=== PATIENT | female | born 1950 | race African-American/Black ===

== ENCOUNTER 2018-08-17 09:17 | Inpatient (IN) | payer OTHER, MEDICARE ==
--- NOTE | 2018-08-17 12:42 | PDOC.FPRHP ---
- History of Present Illness Chief Complaint: Left sided weakness History of Present Illness: Ms Marte is a 67yo female with pmh of HTN presenting with Left sided weakness that started at 3pm yesterday 08/16. 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 She reports always having difficulty walking but it is usually limited by pain not weakness. She later noticed left arm weakness, not being able to goldsmith apprentice things as tightly. Denies any facial droop, speech changes, confusion or numbness/ tingling. She has not prior hx of stroke or TIA. Says she has been to see a civil division deputy sheriff before but reports no cardiac hx. Symptoms are still present, but have not worsened. ED Course: [place]: Amlodipine 10mg [facility]: ASA 325mg - Allergies/Adverse Reactions Allergies Allergy/AdvReac Type Severity Reaction Status Date / Time No Known Allergies Allergy Verified 08/17/18 12:59 - Home Medications Medication Instructions Recorded Confirmed Type Amlodipine [Norvasc] 5 mg PO HS 08/17/18 08/17/18 History Aspirin [Aspirin Chewable] 81 mg PO DAILY 08/17/18 08/17/18 History Cetirizine HCl [Zyrtec] 10 mg PO DAILY 08/17/18 08/17/18 History Cholecalciferol (Vitamin D3) 1 tab PO DAILY 08/17/18 08/17/18 History [Vitamin D] Furosemide 40 mg PO DAILY 08/17/18 08/17/18 History Losartan Potassium 100 mg PO DAILY 08/17/18 08/17/18 History - History PMHx: HTN PSHx: Hysterectomy, Tubal ligation FHx: Strong family hx of CAD & DMII. Dad & uncle- [place]. Mother- Lung cancer Social: Denies tobacco or drug use. Reports social alcohol use - Vital signs BP: 150/103 HR: 74 RR: 16 Tmax: 98.4 Pox: 98% on RA Wt: 113kg - Physical Exam Constitutional: NAD, awake, alert and oriented, well developed HEENT: normocephalic and atraumatic, PERRLA, grossly normal hearing, MMM, oropharynx clear Neck: supple, trachea midline Heart: RRR, no murmurs/rubs/gallops Lungs: CTAB -Lungs: limited due to body habitus Abdomen: soft, non-tender, bowel sounds present Musculoskeletal: normal structure, normal tone Neurological: other (CN 2-12 intact with exception of mild left sided mouth droop. Normal heel to page, clonus L>R. DTR 2+ brachioradialis and patellar The patient is alert, attentive, and oriented. Speech is clear and fluent with good repetition, comprehension, and naming. Sensation to light touch intact arms and legs bilaterally Abnormal rapid alternating movements of left hand 5/5 Rt shoulder abductors, elbow flexors/extensors, wrist goldsmith apprentice. 4/5 in Left 5/5 in Rt hip flexors, ankle dorsiflexors and planter flexors bilaterally) FMR H&P: Results - Radiology Interpretation CT scan - head Status: report reviewed by me Additional comment: CT/ CTA of head and neck- no acute abnormalities no evidence of carotid or intracranial vascular occlusion FMR H&P: A/P - Problem List (1) TIA (transient ischemic attack) Current Visit: Yes Status: Acute Code(s): G45.9 - TRANSIENT CEREBRAL ISCHEMIC ATTACK, UNSPECIFIED (2) HTN (hypertension) Current Visit: Yes Status: Acute Code(s): I10 - ESSENTIAL (PRIMARY) HYPERTENSION - Plan CVA vs TIA - CT/CTA head and neck- no acute abnormalities. no evidence of carotid or intracranial vascular occlusion - Allow for permissive HTN for 24hr - Admit to Stroke, neurochecks q4h - PT/OT - Echo ordered - MRI ordered - Ordered FLP, Mg, TSH, Ph - Pt currently on daily ASA, will add Atorvastatin 40mg - Consulted Neuro HTN - Allow for permissive HTN for 24hrs which is today at 1500 - After 1500 restart home Amlodipine, losartan and Lasix - Request records from civil division deputy sheriff Code Status: FULL DVT ppx: Lovenox FMR H&P: Upper Level - Pertinent history This is a 67 y/o F with PMHx of HTN who presents due to L sided weakness. 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 She reports that it was unusual, but she continued her bus route and later noticed that she was unable to goldsmith apprentice as well in her left hand and her left arm felt weak. She denies any numbness, vision changes, facial changes, speech changes during this time. She denies any falls, syncope, trauma, or past h/o CVA, TIA. - Pertinent findings BP 124/92, HR 72, RR 18, Temp 98.3, O2 sat 100% on RA PE: Gen - alert, oriented, NAD HEENT: PERRL, EOMI, MMM CV: RRR, no murmurs, gallops, rubs Resp: CTAB, no wheezes, rales, rhonchi Neuro: CN II-XII intact with very minimal lip droop on L side, sensation grossly intact bilaterally, Cerebellum intact with [id number] and no dysdiadochokinesia, however decreased coordination with left side. Bilateral clonus. 4/5 strength on LUE, 5/5 strength on LLE, RLE, and RUE. AOx3. - Plan Date/Time: 08/17/18 1242 I, Mya Motley MD, PGY-2, have evaluated this patient and agree with findings/ plan as outlined by sports intern resident. Pertinent changes/additions are listed here. 67 y/o AAF with PMHx of HTN presents with L sided weakness 1. CVA vs TIA - pt with residual LUE weakness, minimal L facial droop, and bilateral clonus. Last seen normal at 3:10 pm on 08/16. No prior h/o CVA. CT and CTA head/neck were WNL except some chronic white matter ischemic changes. Will consult neuro for new CVA. Will check MRI brain, echo. Neuro checks q4h. PT /OT/Speech therapy eval. Will check FLP, TSH, mag, phos. Will start pt on atorvastatin 40mg and aspirin. 2. HTN - pt 23 hours after stoke, so will allow permissive HTN until 24 hours out, but then will restart home BP meds. VTE ppx: lovenox Diet: HH Code status: full Attending Addendum - Attending Addendum Date/Time: 08/17/181999 I personally evaluated the patient and discussed the management with Dr. Ross I agree with the History, Examination, Assessment and Plan documented above with any addition or exceptions noted below- 67 yo female with h/o HTN and heart failure unknown type who presented c/o left sided weakness that began yesterday. States that she noticed difficulty with walking yesterday - was dragging her left leg. Later that day she noticed weakness in her arm. Never had similar symptoms. Denies any STAPLES, difficulty with speech or swallowing. Reports that BP at hoem typically is in 120/80s. PMH/PSH/Meds/All reviewed and agree with resident's documentation. Afebrile VSS. Exam repeated by me and agree with resident's findings. Labs: WBC=8.0, H/H=13.1/42, Jlg=844, Oa=818, K= 3.8, Sy=494, CO2=27, BUN/Cr=8/0.75, Vzej=821, AST/ALT=15/13, TSH=1.1277, CT brain- chronic age related changes; no acute pathology, CT angio head-negative. A/P: 1) Left sided weakness- probable CVA- will obtain MRI,echo. Consult PT/OT. Consult neurology. Rehab screen. Start statin. 2) HTN- almost 24 hours post start of symptoms- resume home meds after 24 hours for BP control. 3) H/o heart failure- unknown treater- had workup 2 years ago with echo and stress test per patient; only on lasix, suspect HF with preserved EF- will obtain echo.
[2018-08-17 12:56] VITALS: BMI 46.5
[2018-08-17] MEDS ORDERED: Ondansetron ODT 4 MG TAB PO PRN (13:18)
[2018-08-17] MEDS ORDERED: Labetalol HCl 100 MG/20 ML VIAL SLOW IVP PRN (13:18)
[2018-08-17] MEDS ORDERED: Acetaminophen 325 MG TAB PO PRN (13:43)
[2018-08-17] MEDS ORDERED: Prevnar 13-Val Conj/PF 0.5 ML SYRINGE IM ONE (13:45)
[2018-08-17 16:21] LABS: Magnesium 2.2 mg/dL (1.6-2.6); Phosphorus 2.7 mg/dL (2.3-4.7)
--- NOTE | 2018-08-17 17:50 | MRI ---
NONCONTRAST ENHANCED MRI IMAGES BRAIN: 08/17/18 HISTORY: Left sided weakness. Multiplanar and multisequence noncontrast enhanced MR images of the brain obtained. Images demonstrate diffuse cortical atrophy and deep white matter ischemic changes. There is a small area of diffusion restriction seen in the right periventricular white matter. This area demonstrates decreased signal also on the ADC maps. This is compatible with a small linear area of acute stroke. T he rest of the brain demonstrates no evidence of acute intracranial pathology. Normal flow voids seen in the major intracranial vessels. No evidence of intracranial hemorrhage is seen. Old area of stroke seen in the left central gael. IMPRESSION: Small linear area of acute stroke in the right periventricular white matter. POS: SALVATORE
[2018-08-17] MEDS: Amlodipine 5 MG TAB PO SCH (20:46)
[2018-08-17] MEDS: Atorvastatin Calcium 40 MG TAB PO SCH (20:47)
--- NOTE | 2018-08-17 22:17 | CON ---
DATE OF CONSULTATION: 08/17/2018 IMPRESSION: 1. Lacunar infarction on the right resulting in left-sided weakness. 2. Hypertension. 3. Aspirin failure. PLAN: 1. Add Plavix. 2. Add statin. 3. Outpatient physical therapy. 4. Exercise program. Ms. Marte is a 67-year-old black female with a known history of hypertension. She presented with we akness on the left side which began yesterday. There was no associated slurred speech or difficulty swallowing. Initial CT scan was unremarkable other than moderately extensive small vessel ischemic c hanges. Her CTA did not show any stenosis of extracranial or intracranial vessels. Her MRI of the b rain shows a subtle area of new ischemia in the right periventricular region. She was not taking a s tatin prior to admission. PAST MEDICAL HISTORY: Hypertension. ALLERGIES: None. SOCIAL HISTORY: No tobacco or alcohol use. FAMILY HISTORY: Noncontributory. REVIEW OF SYSTEMS: No complaint of headache, nausea, vomiting, vertigo, chest pain, shortness of trav ath. PHYSICAL EXAMINATION: GENERAL: She is moderately overweight middle-aged woman in no acute distress. VITAL SIGNS: Blood pressure 124/92, pulse 72, respirations 18, temperature 98.3. HEENT: Within normal limits. NECK: Supple. EXTREMITIES: No cyanosis. NEUROLOGIC: She is alert and appropriate. Her speech is fluent and clear. Cranial nerve exam showe d a subtle droop on the left. Motor exam showed a partial antigravity strength in the left arm and a bit stronger in the left leg. She can walk with a limp. Sensation is intact to touch. No abnormal movements were seen. Imaging was reviewed. SUMMARY: This is a 67-year-old woman with known history of hypertension with fairly extensive silent ischemic injury. She presents with left-sided weakness and acute lacunar infarction. Despite aspir in, would proceed with the changes as noted and outpatient therapy.
[2018-08-18 04:46] LABS: #Eosinphils 0.2 thou/uL (0.0-0.7); #Lymphocytes 1.5 thou/uL (1.20-3.40); #Monocytes 0.7 thou/uL (0.11-0.59); #Neutrophils 4.8 thou/uL (1.40-6.50); %Basophils 0.4 % (0.0-1.0); %Eosinophils 2.8 % (0.0-10.0); %Monocytes 9.1 % (0.0-10.0); %Neutrophils 66.7 % (42.0-75.0); Mean Corpuscular HGB CONC 32.5 g/dL (32.0-36.0); Mean Corpuscular Hemoglobin 26.7 pg (27.0-31.0); Mean Corpuscular Volume 82.1 fL (78.0-98.0); Mean Platelet Volume 8.8 fL (7.4-10.4); Platelet Count 190 thou/uL (130-400); RBC Distribution Width 13.2 % (11.5-14.5); Red Blood Cell (RBC) Count 4.51 mill/uL (4.20-5.40); White Blood Cell (WBC) Count 7.3 thou/uL (4.8-10.8)
[2018-08-18 05:13] LABS: Anion Gap 11 mmol/L (10-20); BUN (Urea Nitrogen) 8 mg/dL (9.8-20.1); Calc. Creatinine Clearance 148 mL/min (70-130); Calcium 8.8 mg/dL (7.8-10.44); Carbon Dioxide 23 mmol/L (23-31); Cardiac Risk 2.8 (Less than 4.5); Chloride 109 mmol/L (98-107); Cholesterol 178 mg/dl (< 200 Desired); Estimated GFR-MDRD Greater than 90; Glucose 103 mg/dL (80-115); HDL Cholesterol 64 mg/dL (>60 Neg Risk); LDL Cholesterol, Calculated 103 mg/dL; Potassium 3.5 mmol/L (3.5-5.1); Sodium 139 mmol/L (136-145); Triglycerides 54 mg/dL (Less than 150)
--- NOTE | 2018-08-18 06:50 | PDOC.FM ---
- Subjective Subjective: Pt reports her left arm feels heavier today and weaker. Understands she has had a stroke. Denies new weakness in other extremities. No questions. - Objective MAR Reviewed: Yes Vital Signs & Weight: Vital Signs (12 hours) Temp Pulse Resp BP BP Pulse Ox 08/18/18 04:00 97.8 F 67 19 113/79 93 L 08/18/18 00:00 98.1 F 62 19 107/83 98 08/17/18 20:46 63 125/103 H 08/17/18 20:36 97 08/17/18 20:00 97.9 F 67 20 125/103 H 97 Weight Weight 115.439 kg I&O: 08/16/18 08/17/18 08/18/18 06:59 06:59 06:59 Intake Total 260 Balance 260 Result Diagrams: 08/18/18 03:38 08/18/18 03:38 <Yvette Ross - Last Filed: 08/18/18 08:56> - Objective Vital Signs & Weight: Vital Signs (12 hours) Temp Pulse Pulse Pulse Resp BP BP 08/18/18 09:05 63 62 122/83 141/99 H 08/18/18 08:57 08/18/18 08:00 98.6 F 61 20 08/18/18 04:00 97.8 F 67 19 08/18/18 00:00 98.1 F 62 19 BP Pulse Ox 08/18/18 09:05 08/18/18 08:57 96 08/18/18 08:00 129/96 H 96 08/18/18 04:00 113/79 93 L 08/18/18 00:00 107/83 98 Weight Weight 115.439 kg I&O: 08/17/18 08/18/18 08/19/18 06:59 06:59 06:59 Intake Total 260 Balance 260 Result Diagrams: 08/18/18 03:38 08/18/18 03:38 <Edgardo Osorio - Last Filed: 08/18/18 11:34> Phys Exam - Physical Examination Constitutional: NAD Neck: supple Respiratory: no wheezing, clear to auscultation bilateral limited by body habitus Cardiovascular: RRR, no significant murmur Gastrointestinal: soft, non-tender, positive bowel sounds Musculoskeletal: no edema 4/5 weakness and discoordination of arm and hand Psychiatric: normal affect, A&O x 3 <Yvette Ross - Last Filed: 08/18/18 08:56> Dx/Plan (1) CVA (cerebral vascular accident) Code(s): I63.9 - CEREBRAL INFARCTION, UNSPECIFIED Status: Acute (2) HTN (hypertension) Code(s): I10 - ESSENTIAL (PRIMARY) HYPERTENSION Status: Chronic - Plan Plan: CVA - Failed ASA - CT/CTA head and neck- no acute abnormalities. no evidence of carotid or intracranial vascular occlusion - MRI: Small linear area of acute stroke in the right periventricuular white matter - Neurochecks q4h - PT/OT, will need outpatient PT - Echo ordered - FLP nml - Continue ASA, Atorvastatin 40mg - Started Plavix - Consulted Neuro HTN - Continue Amlodipine, losartan and Lasix - Request records from screen tender helper Code Status: FULL DVT ppx: Lovenox <Yvette Ross - Last Filed: 08/18/18 08:56> Attending Addendum - Attending Addendum Date/Time: 08/18/18 1133 I personally evaluated the patient and discussed the management with Dr. Ross. I agree with the History, Examination, Assessment and Plan documented above with any addition or exceptions noted below. Patient here for acute stroke. She is now on ASA and Plavix. MRI performed. Neurology has seen patient and agrees with plan. Awaiting therapy service recommendations to decide on dispo planning. Patient desires to go home and if cleared by therapy for that she should be stable for dc home today. <Edgardo Osorio - Last Filed: 08/18/18 11:34>
[2018-08-18] MEDS: Loratadine 10 MG TAB PO SCH (08:56)
[2018-08-18] MEDS: Losartan 25 MG TAB PO SCH (08:56)
[2018-08-18] MEDS: Enoxaparin Sodium 40 MG/0.4 ML SYRINGE SC SCH (08:57)
[2018-08-18] MEDS: Furosemide 40 MG TAB PO SCH ×2 (08:57→09:01)
[2018-08-18] MEDS: Amlodipine 5 MG TAB PO SCH (21:02)
[2018-08-18] MEDS: Atorvastatin Calcium 40 MG TAB PO SCH (21:02)
--- NOTE | 2018-08-19 06:14 | PDOC.FM ---
- Subjective Subjective: Reports doing well with walker walking to bathroom. No decline or improvement in left sided weakness. Awaiting rehab placement. She reports hx of DESMOND, wear CPAP at night. - Objective MAR Reviewed: Yes Vital Signs & Weight: Vital Signs (12 hours) Temp Pulse Resp BP BP Pulse Ox 08/19/18 04:00 99.7 F H 62 16 124/74 94 L 08/19/18 00:00 98.8 F 72 22 H 141/89 H 93 L 08/18/18 21:02 68 133/85 94 L 08/18/18 20:00 98.3 F 68 16 133/85 94 L Weight Weight 115.439 kg I&O: 08/17/18 08/18/18 08/19/18 06:59 06:59 06:59 Intake Total 260 750 Balance 260 750 Result Diagrams: 08/18/18 03:38 08/18/18 03:38 Phys Exam - Physical Examination Constitutional: NAD Neck: supple Respiratory: no wheezing, clear to auscultation bilateral Cardiovascular: RRR, no significant murmur Gastrointestinal: soft, non-tender, positive bowel sounds Musculoskeletal: no edema, pulses present 3/5 left UE weakness, subtle left sided facial droop, unbalanced when stand Psychiatric: normal affect, A&O x 3 Dx/Plan (1) CVA (cerebral vascular accident) Code(s): I63.9 - CEREBRAL INFARCTION, UNSPECIFIED Status: Acute (2) HTN (hypertension) Code(s): I10 - ESSENTIAL (PRIMARY) HYPERTENSION Status: Chronic (3) Pulmonary HTN Code(s): I27.20 - PULMONARY HYPERTENSION, UNSPECIFIED Status: Acute (4) DESMOND (obstructive sleep apnea) Code(s): G47.33 - OBSTRUCTIVE SLEEP APNEA (ADULT) (PEDIATRIC) Status: Acute (5) (HFpEF) heart failure with preserved ejection fraction Code(s): I50.30 - UNSPECIFIED DIASTOLIC (CONGESTIVE) HEART FAILURE Status: Acute - Plan Plan: CVA - Failed ASA - CT/CTA head and neck- no acute abnormalities. no evidence of carotid or intracranial vascular occlusion - MRI: Small linear area of acute stroke in the right periventricuular white matter - Neurochecks q4h - PT/OT - Echo: EF 50-55% no thrombus - FLP nml - Continue ASA, Atorvastatin 40mg, Plavix - Consulted Neuro, apprec recs - PT recommends inpt rehab HTN - Continue Amlodipine, losartan and Lasix - Request records from timber buyer DESMOND - Will order CPAP HFpEF - documented on records obtained from timber buyer Pulmonary HTN - documented on records obtained from timber buyer. Will continue to look through records today. Code Status: FULL DVT ppx: Lovenox Dispo: pending inpt rehab placement
[2018-08-19] MEDS: Losartan 25 MG TAB PO SCH (08:39)
[2018-08-19] MEDS: Enoxaparin Sodium 40 MG/0.4 ML SYRINGE SC SCH (08:39)
[2018-08-19] MEDS: Loratadine 10 MG TAB PO SCH (08:43)
[2018-08-19] MEDS: Clopidogrel Bisulfate 75 MG TAB PO SCH (08:43)
[2018-08-19] MEDS: Furosemide 40 MG TAB PO SCH (08:43)
--- NOTE | 2018-08-19 11:35 | PDOC.EVN ---
Attending Addendum - Attending Addendum Date/Time: 08/19/18 0310 I personally evaluated the patient and discussed the management with Dr. Ross. I agree with the History, Examination, Assessment and Plan documented in her progress note with any addition or exceptions noted below. Patient doing well. BP and other comorbid conditions controlled. Awaiting placement at hopefully inpatient rehab as she is good candidate. Otherwise medically stable for discharge.
[2018-08-19] MEDS: Amlodipine 5 MG TAB PO SCH (22:03)
[2018-08-19] MEDS: Atorvastatin Calcium 40 MG TAB PO SCH (22:03)
--- NOTE | 2018-08-20 06:00 | PDOC.FM ---
- Subjective Subjective: Continues to report left sided weakness. Stable from yesterday. She is receiving PT. No questions at this time. - Objective MAR Reviewed: Yes Vital Signs & Weight: Vital Signs (12 hours) Temp Pulse Resp BP BP Pulse Ox 08/20/18 04:00 98.5 F 70 16 111/75 95 08/20/18 01:09 98.6 F 71 16 121/76 93 L 08/19/18 22:03 74 104/75 08/19/18 20:25 94 L 08/19/18 19:08 98.5 F 79 20 104/75 94 L Weight Weight 115.439 kg I&O: 08/18/18 08/19/18 08/20/18 06:59 06:59 06:59 Intake Total 260 870 960 Balance 260 870 960 Result Diagrams: 08/18/18 03:38 08/18/18 03:38 <Yvette Ross - Last Filed: 08/20/18 09:00> - Objective Vital Signs & Weight: Vital Signs (12 hours) Temp Pulse Resp BP Pulse Ox 08/20/18 07:53 99.3 F 65 20 123/87 96 08/20/18 04:00 98.5 F 70 16 111/75 95 08/20/18 01:09 98.6 F 71 16 121/76 93 L Weight Weight 115.439 kg I&O: 08/19/18 08/20/18 08/21/18 06:59 06:59 06:59 Intake Total 870 1200 Balance 870 1200 Result Diagrams: 08/18/18 03:38 08/18/18 03:38 <Edgardo Osorio - Last Filed: 08/20/18 10:53> Phys Exam - Physical Examination Constitutional: NAD Neck: supple Respiratory: no wheezing, clear to auscultation bilateral Cardiovascular: RRR, no significant murmur Gastrointestinal: soft, non-tender, positive bowel sounds RUE 3/5 weakness & LLE 4/5 weakness Psychiatric: normal affect, A&O x 3 <Yvette Ross - Last Filed: 08/20/18 09:00> Dx/Plan (1) CVA (cerebral vascular accident) Code(s): I63.9 - CEREBRAL INFARCTION, UNSPECIFIED Status: Acute (2) HTN (hypertension) Code(s): I10 - ESSENTIAL (PRIMARY) HYPERTENSION Status: Chronic (3) Pulmonary HTN Code(s): I27.20 - PULMONARY HYPERTENSION, UNSPECIFIED Status: Acute (4) DESMOND (obstructive sleep apnea) Code(s): G47.33 - OBSTRUCTIVE SLEEP APNEA (ADULT) (PEDIATRIC) Status: Acute (5) (HFpEF) heart failure with preserved ejection fraction Code(s): I50.30 - UNSPECIFIED DIASTOLIC (CONGESTIVE) HEART FAILURE Status: Acute - Plan Plan: CVA - Failed ASA - CT/CTA head and neck- no acute abnormalities. no evidence of carotid or intracranial vascular occlusion - MRI: Small linear area of acute stroke in the right periventricuular white matter - Neurochecks q4h - PT/OT - Echo: EF 50-55% no thrombus - FLP nml - Continue ASA, Atorvastatin 40mg, Plavix - Consulted Neuro, apprec recs - Pending inpt rehab placement HTN - Continue Amlodipine, losartan and Lasix DESMOND - CPAP at HS HFpEF - Does not appear to be fluid overloaded on exam - Continue lasix daily Pulmonary HTN, stable Code Status: FULL DVT ppx: Lovenox Dispo: pending inpt rehab placement <Yvette Ross - Last Filed: 08/20/18 09:00> Attending Addendum - Attending Addendum Date/Time: 08/20/18 1053 I personally evaluated the patient and discussed the management with Dr. Ross. I agree with the History, Examination, Assessment and Plan documented above with any addition or exceptions noted below. Patient stable. Doing well with PT. Awaiting approval for inpatient rehab. <Edgardo Osorio - Last Filed: 08/20/18 10:53>
[2018-08-20] MEDS: Enoxaparin Sodium 40 MG/0.4 ML SYRINGE SC SCH (10:58)
[2018-08-20] MEDS: Clopidogrel Bisulfate 75 MG TAB PO SCH (10:59)
[2018-08-20] MEDS: Furosemide 40 MG TAB PO SCH (11:01)
[2018-08-20] MEDS: Losartan 25 MG TAB PO SCH (11:01)
[2018-08-20] MEDS: Loratadine 10 MG TAB PO SCH (11:01)
[2018-08-20 11:54] VITALS: TEMP 98
[2018-08-20 12:29] VITALS: BP 143/99
--- NOTE | 2018-08-21 00:52 | DIS-2 ---
DATE OF ADMISSION: 08/17/2018 DATE OF DISCHARGE: 08/20/2018 RESIDENT: Yvette Ross M.D., PGY1 ADMITTING ATTENDING: Laura Dodson M.D. DISCHARGE ATTENDING: Edgardo Osorio M.D. CONSULTATIONS: Neurology. PROCEDURES: 1. Brain MRI, small linear area of acute stroke in the right periventricular white matter. 2. Echocardiogram: EF 50%-55%. Mild mitral and tricuspid regurgitation. PRIMARY DIAGNOSIS: Acute cerebrovascular accident. SECONDARY DIAGNOSES: 1. Hypertension. 2. Obstructive sleep apnea. 3. Heart failure with preserved ejection fraction. 4. Pulmonary hypertension. DISCHARGE MEDICATIONS: 1. Aspirin 81 mg daily. 2. Amlodipine 5 mg at bedtime. 3. Furosemide 40 mg daily. 4. Losartan 100 mg daily. 5. Zyrtec 10 mg daily. 6. Vitamin D3 one tab daily. 7. Atorvastatin 40 mg at bedtime. 8. Clopidogrel 75 mg daily. DISCONTINUED MEDICATIONS: None. HISTORY OF PRESENT ILLNESS AND HOSPITAL COURSE: Ms. Marte is a 67-year-old female with past medical history of hypertension who presented with left-sided weakness that started 3:00 p.m. the day prior. She was outside the window for TPA. She was transferred from [place] ED, where CT and CTA of head and neck were performed and showed no acute abnormalities. Brain MRI was notable for a small li near area of acute stroke in the right periventricular white matter. The patient had been on aspirin prior to stroke and therefore failed aspirin therapy. Plavix was added as well as atorvastatin 40 m g. Neurology was consulted. Echo was performed showing EF of 50%-55%, no thrombus. PT and OT evalu ated the patient and felt that inpatient rehab placement was best for recovery. The patient's chronic condition of hypertension was treated with her home medications. She was mirtha nued on CPAP at night for her obstructive sleep apnea. Records were obtained from her media production support manager t hat showed a history of heart failure with preserved ejection fraction, which she was continued on La six and a history of pulmonary hypertension, stable. DISPOSITION: Stable. DISCHARGE INSTRUCTIONS: 1. Location: Inpatient rehabilitation. 2. Diet: Heart healthy. 3. Activity: No restriction. 4. Followup: Follow up with PCP in 3-7 days.
== END 2018-08-20 17:25 | DRG 65 ==
LOC: ERS 09:17 → ERHOLD 10:08 → 2SE 11:56
PROVIDERS: ADMIT Student in an Organized Health Care Education/Training Program; ATTEND Student in an Organized Health Care Education/Training Program
DX: I63.9 Cerebral infarction, unspecified (principal); I50.30 Unspecified diastolic (congestive) heart failure; I11.0 Hypertensive heart disease with heart failure; I27.20 Pulmonary hypertension, unspecified; G47.33 Obstructive sleep apnea (adult) (pediatric)
CPT/HCPCS: 36415; 36416; 70551; 80048; 80061; 83735; 84100; 84443; 85025; 90471; 90662; 90670; 93306; 99285; G0008; G0009; G8978-GP-CL; G8979-GP-CJ; G8987-GO-CJ; G8988-GO-CI; G8996-GN-CH; G8997-GN-CH; G8998-GN-CH; J1650

== ENCOUNTER 2022-03-14 12:04 | Inpatient (IN) | payer MEDICARE, OTHER ==
[2022-03-14 14:23] LABS: #Basophils 0.1 thou/uL (0.0-0.2); #Eosinphils 0.3 thou/uL (0.0-0.7); #Lymphocytes 1.4 thou/uL (1.20-3.40); #Monocytes 0.5 thou/uL (0.11-0.59); #Neutrophils 6.8 thou/uL (1.40-6.50); %Basophils 0.9 % (0.0-1.0); %Lymphocytes 15.2 % (21.0-51.0); %Monocytes 5.9 % (0.0-10.0); Hemoglobin 9.9 g/dL (12.0-16.0); Mean Corpuscular HGB CONC 31.3 g/dL (32.0-36.0); Mean Corpuscular Hemoglobin 24.1 pg (27.0-31.0); Mean Corpuscular Volume 76.9 fL (78.0-98.0); Mean Platelet Volume 8.7 fL (7.4-10.4); Platelet Count 237 thou/uL (130-400); RBC Distribution Width 17.9 % (11.5-14.5); Red Blood Cell (RBC) Count 4.11 mill/uL (4.20-5.40); White Blood Cell (WBC) Count 9.1 thou/uL (4.8-10.8)
[2022-03-14 14:44] LABS: ALT (SGPT) 10 U/L (8-55); AST (SGOT) 14 U/L (5-34); Albumin 3.6 g/dL (3.4-4.8); Alkaline Phosphatase 78 U/L (40-110); Anion Gap 13 mmol/L (10-20); BUN (Urea Nitrogen) 12 mg/dL (9.8-20.1); Bilirubin, Total 0.7 mg/dL (0.2-1.2); Calc. Creatinine Clearance 0 mL/min (70-130); Calcium 9.1 mg/dL (7.8-10.44); Carbon Dioxide 24 mmol/L (23-31); Chloride 105 mmol/L (98-107); Globulin 3.9 g/dL (2.4-3.5); Glucose 88 mg/dL (80-115); Potassium 3.7 mmol/L (3.5-5.1); Protein, Total 7.5 g/dL (5.8-8.1); Sodium 138 mmol/L (136-145)
[2022-03-14] MEDS ORDERED: Acetaminophen 500 MG TAB ONE (16:06)
[2022-03-14] MEDS ORDERED: Aspirin 325 MG TAB ONE (16:06)
[2022-03-14] MEDS ORDERED: Ondansetron ODT 4 MG TAB PO PRN (17:27)
[2022-03-14] MEDS ORDERED: Acetaminophen 325 MG TAB PO PRN (17:27)
[2022-03-14] MEDS ORDERED: Senokot S 8.6-50 MG TAB PO PRN (17:27)
[2022-03-14] MEDS ORDERED: traMADol HCl 50 MG TAB PO PRN (18:12)
[2022-03-14 18:21] LABS: Magnesium 2.1 mg/dL (1.6-2.6)
[2022-03-14 18:23] LABS: Troponin I Less than 0.010 ng/mL (< 0.028)
[2022-03-14] MEDS ORDERED: Apixaban 5 MG TAB PO SCH (21:00)
[2022-03-14 21:47] VITALS: BMI 48.7
[2022-03-14] MEDS ORDERED: Ferrous Sulfate 325 MG TAB PO SCH (23:15)
[2022-03-15 01:26] LABS: SARS-CoV-2 NAA Rapid Test Not Detected (NotDetected)
[2022-03-15 01:28] LABS: Bacteria/HPF 2+ HPF (None Seen); Bilirubin Negative (Negative); Blood, Urine Negative (Negative); Calcium Oxalate Crystals Rare HPF (None Seen); Clarity Clear (Clear); Glucose, Urine (Dipstick) Normal (Negative); Ketone, Urine Negative (Negative); Leukocyte 250 Leu/uL (Negative); Nitrite 2+ (Negative); Protein, Urine (Dipstick) Negative (Neg-Trace); RBC/HPF 0-3 HPF (0-3); Specific Gravity, Urine 1.016 (1.002-1.036); Squamous Epithelial 0-3 HPF (0-3); Urobilinogen Normal mg/dL (Less than 2); pH, Urine 6.5 (5.0-9.0)
[2022-03-15 05:43] LABS: Anion Gap 13 mmol/L (10-20); BUN (Urea Nitrogen) 14 mg/dL (9.8-20.1); Calc. Creatinine Clearance 127 mL/min (70-130); Calcium 8.7 mg/dL (7.8-10.44); Carbon Dioxide 24 mmol/L (23-31); Cardiac Risk 2.3 (Less than 4.5); Chloride 109 mmol/L (98-107); Cholesterol 138 mg/dl (< 200 Desired); Glucose 88 mg/dL (80-115); HDL Cholesterol 60 mg/dL (>60 Neg Risk); Iron Binding Capacity, Total 321 mcg/dL (265-497); LDL Cholesterol, Calculated 66 mg/dL; Potassium 3.5 mmol/L (3.5-5.1); Sodium 142 mmol/L (136-145); Transferrin, Serum 257 mg/dL (173-360); Triglycerides 61 mg/dL (Less than 150)
[2022-03-15 05:55] LABS: #Basophils 0.1 thou/uL (0.0-0.2); #Eosinphils 0.4 thou/uL (0.0-0.7); #Lymphocytes 1.6 thou/uL (1.20-3.40); #Monocytes 0.7 thou/uL (0.11-0.59); #Neutrophils 5.8 thou/uL (1.40-6.50); %Basophils 0.6 % (0.0-1.0); %Eosinophils 4.5 % (0.0-10.0); %Lymphocytes 18.4 % (21.0-51.0); %Monocytes 7.8 % (0.0-10.0); %Neutrophils 68.7 % (42.0-75.0); Hemoglobin 9.2 g/dL (12.0-16.0); Mean Corpuscular HGB CONC 31.2 g/dL (32.0-36.0); Mean Corpuscular Hemoglobin 24.1 pg (27.0-31.0); Mean Corpuscular Volume 77.2 fL (78.0-98.0); Mean Platelet Volume 8.3 fL (7.4-10.4); Platelet Count 192 thou/uL (130-400); RBC Distribution Width 17.9 % (11.5-14.5); Red Blood Cell (RBC) Count 3.82 mill/uL (4.20-5.40); White Blood Cell (WBC) Count 8.5 thou/uL (4.8-10.8)
[2022-03-15] MEDS: Ferrous Sulfate 325 MG TAB PO SCH ×2 (08:11→17:26)
[2022-03-15] MEDS ORDERED: Dextrose 5% in Water 1,000 ML IV PRN (18:00)
[2022-03-15] MEDS ORDERED: Dextrose 50% Abboject 50 ML SYRINGE IVP PRN (18:00)
[2022-03-15] MEDS ORDERED: HumaLOG 300 UNITS/3 ML VIAL SC PRN (18:00)
[2022-03-16 05:47] LABS: #Eosinphils 0.3 thou/uL (0.0-0.7); #Lymphocytes 1.7 thou/uL (1.20-3.40); #Monocytes 0.6 thou/uL (0.11-0.59); #Neutrophils 4.9 thou/uL (1.40-6.50); %Basophils 0.6 % (0.0-1.0); %Eosinophils 4.2 % (0.0-10.0); %Lymphocytes 22.3 % (21.0-51.0); %Monocytes 8.1 % (0.0-10.0); %Neutrophils 64.7 % (42.0-75.0); Hemoglobin 9.5 g/dL (12.0-16.0); Mean Corpuscular HGB CONC 31.1 g/dL (32.0-36.0); Mean Corpuscular Hemoglobin 25.1 pg (27.0-31.0); Mean Corpuscular Volume 80.5 fL (78.0-98.0); Mean Platelet Volume 9.8 fL (7.4-10.4); Platelet Count 185 thou/uL (130-400); RBC Distribution Width 18.7 % (11.5-14.5); White Blood Cell (WBC) Count 7.6 thou/uL (4.8-10.8)
[2022-03-16 05:48] LABS: Anion Gap 12 mmol/L (10-20); BUN (Urea Nitrogen) 10 mg/dL (9.8-20.1); Calc. Creatinine Clearance 133 mL/min (70-130); Calcium 8.4 mg/dL (7.8-10.44); Carbon Dioxide 22 mmol/L (23-31); Chloride 111 mmol/L (98-107); Glucose 89 mg/dL (80-115); Potassium 3.8 mmol/L (3.5-5.1); Sodium 141 mmol/L (136-145)
[2022-03-16] MEDS: Ferrous Sulfate 325 MG TAB PO SCH ×2 (09:44→17:01)
[2022-03-16] MEDS ORDERED: Apixaban 5 MG TAB PO SCH (10:30)
[2022-03-16] MEDS ORDERED: Atorvastatin Calcium 40 MG TAB PO SCH (10:30)
[2022-03-16] MEDS ORDERED: Loratadine 10 MG TAB PO PRN (10:34)
[2022-03-16] MEDS ORDERED: Polyethylene Glycol 3350 17 GM Packet PO PRN (11:07)
[2022-03-16] MEDS: Methyl Salicylate/Menthol 85 GM TUBE TOP SCH ×3 (15:41→21:52)
[2022-03-16] MEDS ORDERED: Metoprolol Tartrate 25 MG TAB PO SCH (21:00)
[2022-03-16] MEDS: Metoprolol Tartrate 25 MG TAB PO SCH (21:51)
[2022-03-16] MEDS: Apixaban 5 MG TAB PO SCH (21:51)
[2022-03-16] MEDS: Senokot S 8.6-50 MG TAB PO SCH (21:52)
[2022-03-17] MEDS: Ferrous Sulfate 325 MG TAB PO SCH ×2 (09:36→16:42)
[2022-03-17] MEDS: Vit A,C & E/Lutein/Minerals Tablet PO SCH (09:36)
[2022-03-17] MEDS: Cholecalciferol 1,000 UNITS (25 MCG) TAB PO SCH (09:37)
[2022-03-17] MEDS: Metoprolol Tartrate 25 MG TAB PO SCH ×2 (09:37→21:28)
[2022-03-17] MEDS: Citalopram 20 MG TAB PO SCH (09:37)
[2022-03-17] MEDS: Methyl Salicylate/Menthol 85 GM TUBE TOP SCH ×3 (09:37→21:30)
[2022-03-17] MEDS: Apixaban 5 MG TAB PO SCH ×2 (09:39→21:28)
[2022-03-17] MEDS: Cefdinir 300 MG CAP PO SCH ×2 (09:40→21:29)
[2022-03-17] MEDS: Senokot S 8.6-50 MG TAB PO SCH ×2 (09:41→21:30)
[2022-03-17] MEDS: Gabapentin 100 MG CAP PO SCH ×2 (16:42→21:28)
[2022-03-17] MEDS ORDERED: Aspirin 81 mg Enteric Coated Tablet PO SCH (18:00)
[2022-03-17] MEDS ORDERED: Atorvastatin Calcium 40 MG TAB PO SCH (21:00)
[2022-03-18] MEDS ORDERED: Aspirin 81 mg Enteric Coated Tablet PO SCH (09:00)
[2022-03-18] MEDS: Cholecalciferol 1,000 UNITS (25 MCG) TAB PO SCH (09:44)
[2022-03-18] MEDS: Senokot S 8.6-50 MG TAB PO SCH (09:44)
[2022-03-18] MEDS: Metoprolol Tartrate 25 MG TAB PO SCH (09:44)
[2022-03-18] MEDS: Citalopram 20 MG TAB PO SCH (09:44)
[2022-03-18] MEDS: Apixaban 5 MG TAB PO SCH (09:45)
[2022-03-18] MEDS: Gabapentin 100 MG CAP PO SCH (09:45)
[2022-03-18] MEDS: Cefdinir 300 MG CAP PO SCH (09:45)
[2022-03-18] MEDS ORDERED: Clopidogrel Bisulfate 75 MG TAB PO SCH (09:45)
[2022-03-18] MEDS: Methyl Salicylate/Menthol 85 GM TUBE TOP SCH (09:46)
[2022-03-18] MEDS: Ferrous Sulfate 325 MG TAB PO SCH (09:46)
[2022-03-18] MEDS: Vit A,C & E/Lutein/Minerals Tablet PO SCH (10:37)
[2022-03-18 12:12] VITALS: BP 140/86; TEMP 98.4
[2022-03-18] MEDS ORDERED: Mometasone 100 MCG/Formoterol 5 MCG 120 PUFF INHALER INH SCH (18:30)
[2022-03-19] MEDS ORDERED: Non-Formulary Item 1 EACH (Fluticasone/Vilanterol [Breo Ellipta] 100 MCG/25 MCG Blst.W.De IH SCH (09:00)
[2022-03-19] MEDS ORDERED: Clopidogrel Bisulfate 75 MG TAB PO SCH (09:00)
== END 2022-03-18 13:15 | DRG 65 ==
LOC: ERS 12:04 → ERHOLD 17:08 → NEURO 20:32 → OBSVTOIN 03-17 14:57
PROVIDERS: ADMIT Internal Medicine; ATTEND Internal Medicine
DX: I63.89 Other cerebral infarction (principal); N39.0 Urinary tract infection, site not specified; I50.32 Chronic diastolic (congestive) heart failure; Z68.42 Body mass index [BMI] 45.0-49.9, adult; Z20.822 Contact with and (suspected) exposure to COVID-19; I08.1 Rheumatic disorders of both mitral and tricuspid valves; I37.1 Nonrheumatic pulmonary valve insufficiency; I11.0 Hypertensive heart disease with heart failure; E66.01 Morbid (severe) obesity due to excess calories; D53.9 Nutritional anemia, unspecified; G83.11 Monoplegia of lower limb affecting right dominant side; F32.A Depression, unspecified; Z60.2 Problems related to living alone; G47.33 Obstructive sleep apnea (adult) (pediatric); I27.20 Pulmonary hypertension, unspecified; I48.0 Paroxysmal atrial fibrillation; Z79.01 Long term (current) use of anticoagulants; Z79.82 Long term (current) use of aspirin; Z79.899 Other long term (current) drug therapy; Z98.51 Tubal ligation status; Z90.710 Acquired absence of both cervix and uterus; Z82.49 Family history of ischemic heart disease and other diseases of the circulatory system; Z80.1 Family history of malignant neoplasm of trachea, bronchus and lung
CPT/HCPCS: 36415; 70450; 70551; 80048; 80053; 80061; 81001; 82728; 83550; 83735; 83880; 84466; 84484; 85025; 93005; 93306; 93880; G0378

== ENCOUNTER 2024-04-27 11:28 | Day surgery (SDC) | payer OTHER, MEDICAID ==
[2024-04-25 13:15] VITALS: BMI 47.5
[2024-04-27] MEDS ORDERED: PROPOFOL 40 ML ONE (13:12)
[2024-04-27] MEDS ORDERED: Lidocaine 2% PF 5 ML VIAL ONE (13:13)
[2024-04-27] MEDS ORDERED: PROPOFOL 20 ML ONE (13:56)
[2024-04-27 15:24] LABS: #Basophils 0.03 10x3/uL (0.0-0.2); %Basophils 0.3 % (0.0-1.0); %Eosinophils 1.3 % (0.0-10.0); %Lymphocytes 16.8 % (21.0-51.0); %Monocytes 7.3 % (0.0-10.0); %Neutrophils 74.1 % (42.0-75.0); Hematocrit 32.2 % (36.0-47.0); Hemoglobin 10.4 g/dL (12.0-16.0); Mean Corpuscular HGB CONC 32.3 g/dL (32.0-36.0); Mean Corpuscular Hemoglobin 23.7 pg (27.0-31.0); Mean Corpuscular Volume 73.3 fL (78.0-98.0); Mean Platelet Volume 10.6 fL (7.4-10.4); Platelet Count 182 10x3/uL (130-400); RBC Distribution Width 18.5 % (11.5-14.5); Red Blood Cell (RBC) Count 4.39 mill/uL (4.20-5.40)
== END 2024-04-27 15:46 | disposition home or self-care (01) ==
LOC: SDC 11:28
PROVIDERS: ATTEND Internal Medicine Gastroenterology
PROC: 0DJD8ZZ Inspection of Lower Intestinal Tract, Via Natural or Artificial Opening Endoscopic (ICD-10-PCS; principal; 2024-04-27)
PROC: 0DJ08ZZ Inspection of Upper Intestinal Tract, Via Natural or Artificial Opening Endoscopic (ICD-10-PCS; 2024-04-27)
DX: K44.9 Diaphragmatic hernia without obstruction or gangrene (principal); K64.9 Unspecified hemorrhoids; D62 Acute posthemorrhagic anemia; I11.0 Hypertensive heart disease with heart failure; I50.9 Heart failure, unspecified; I25.10 Atherosclerotic heart disease of native coronary artery without angina pectoris; Z98.51 Tubal ligation status; Z90.710 Acquired absence of both cervix and uterus; Z79.82 Long term (current) use of aspirin; Z98.890 Other specified postprocedural states; Z79.01 Long term (current) use of anticoagulants; Z79.899 Other long term (current) drug therapy
CPT/HCPCS: 43235; 45378; 82728; 85025; J2001; J2704

== ENCOUNTER 2025-10-12 11:11 | Outpatient (CLI) | payer OTHER | END 2025-10-12 11:12 | disposition home or self-care (01) | LOC: SCSBT 11:11 | PROVIDERS: ATTEND Family Medicine | DX: Z78.0 Asymptomatic menopausal state (principal) | CPT/HCPCS: 77080 ==